=== PATIENT | female | born 1950 | race Caucasian/White ===

== ENCOUNTER 2022-01-11 07:18 | Emergency (ER) | payer MEDICARE, SELFPAY ==
[2022-01-11 07:20] VITALS: BP 138/69; PULSE 81; RESP 16; TEMP 36.6; O2SAT 100
[2022-01-11] MEDS: Famotidine 20 MG TAB PO (07:35)
[2022-01-11] MEDS: Dexamethasone 10 MG/ML VIAL IM (07:35)
--- NOTE | 2022-01-11 07:35 | ED.GENADUL_ITS ---
Discharge Plan Disposition Patient Disposition: HOME Condition: Stable Discharge Details Chief Complaint: Allergic Clinical Impression: Eye swelling Primary Care Provider: Bautista Lee ED Provider: Oswald Delgado Home Meds and New Rx's Prescriptions: No Action lisinopril 20 MG tablet 20 mg PO QAM aspirin [Aspir-81] 81 mg Tablet,Delayed Release (Dr/Ec) 81 mg PO DAILY Discharge Instructions Instructions: General Allergic Reaction (ED) Additional Instructions: Please continue at home with Benadryl as needed. Please return to the emergency department he develop worsening swelling redness drainage fevers eye pain or change in vision or other abnormal symptoms. Medical Decision Making 31-year-old female presents after sustaining insect bite to the lower eyelid yesterday while gardening outside, edema to upper and lower lids of right eye, no eye drainage, no conjunctival injection, patient has normal extraocular motion, normal vision, no proptosis, no fever, area is not warm or fluctuant. Likely simple localized allergic reaction, low suspicion for preseptal c ellulitis, no evidence of orbital cellulitis; will be given dexamethasone IM as well as famotidine for symptomatic relief. Home care instructions and strict return precautions given. HPI General Date/Time Provider Initiated Documentation: 01/11/22 07:30 . HPI Narrative: 71-year-old female history of prior allergic reactions presents 1 day after gardening in her yard, swelling to her right itching in nature, noted that she may have had an insect bite on the lower lid. Denies fevers chills or other systemic signs of illness. Took a Benadryl with minimal relief. Related Data Home Medications Medication Instructions Recorded Confirmed lisinopril 20 mg tablet 20 mg PO QAM 01/11/13 01/11/22 aspirin 81 mg tablet,delayed 81 mg PO DAILY 01/11/22 01/11/22 release Allergies Allergy/AdvReac Type Severity Reaction Status Date / Time No Known Allergies Allergy Unverified 01/11/22 07:26 General Stated Complaint: Allergic MARY LOU: 4 Review of Systems Narrative: Review of Systems Constitutional: negative Eyes: Eye swelling ENT: negative Cardiovascular: negative Respiratory: negative Gastrointestinal: negative : negative Musculoskeletal: negative Skin: negative Neurologic: negative Psych: negative PFSH All Active Problems (Updated 01/11/22 @ 07:40 by Oswald Delgado MD) Eye swelling (Acute) Social History Smoking/Tobacco Use Status: Never Smoking risk assessment performed?: Yes Alcohol Intake: never Drug use: Never Substance use type: does not use Do you feel safe at home: Yes Do you feel safe in your relationship?: Yes Exam Narrative Exam Narrative: Physical Examination General: alert, awake, cooperative, resting comfortably, no acute distress HEENT: Edema of upper and lower eyelid, no erythema fluctuance or purulent drainage, patient has normal conjunctiva, extraocular motion intact. Normocephalic, atraumatic; PERRL, no visual changes, no proptosis l; no nasal discharge; moist mucous membranes, oral and pharyngeal mucosa normal, tolerating secretions Neck: supple, trachea midline; full ROM Chest: normal to inspection Respiratory: normal respiratory effort, speaking in full sentences, clear to auscultation, no wheezing, rales or rhonchi Cardiac: regular rate, regular rhythm, S1S2 intact, no murmurs rubs or gallops GI: abdomen soft, non-tender, non-distended; no palpable mass or hepatosplenomegaly Skin: no lesions, rashes or trauma appreciated Neuro: AAOx3, normal speech, moving all extremities Psych: Appropriate mood and affect Course Vital Signs Vital signs: Vital Signs Temperature 36.6 C 01/11/22 07:20 Pulse 81 01/11/22 07:20 Respiratory Rate 16 01/11/22 07:20 Blood Pressure 138/69 01/11/22 07:20 Pulse Oximetry 100 01/11/22 07:20 Temperature 36.6 C 01/11/22 07:20 Temperature Source Temporal Artery Scan 01/11/22 07:20 Pulse 81 01/11/22 07:20 Respiratory Rate 16 01/11/22 07:20 Respiratory Effort 01/11/22 07:25 Respiratory Pattern Normal 01/11/22 07:24 Blood Pressure 138/69 01/11/22 07:20 Blood Pressure Position Sitting 01/11/22 07:20 Pulse Oximetry 100 01/11/22 07:20 Oxygen Delivery Method Room Air 01/11/22 07:20 Oxygen Flow Rate 0 01/11/22 07:20 Pain Level 0 01/11/22 07:20
== END 2022-01-11 07:45 | disposition home or self-care (01) ==
PROVIDERS: Emergency Provider Emergency Medicine; PCP Internal Medicine
DX: H02.842 Edema of right lower eyelid (principal); H02.841 Edema of right upper eyelid
CPT/HCPCS: 96372; 99284; 99283; J1100